=== PATIENT | female | born 1980 | race Asian ===

== ENCOUNTER 2021-03-12 14:47 | Emergency (ER) | payer OTHER ==
[2021-03-12 16:13] VITALS: BP 138/79; PULSE 76
== END 2021-03-12 19:12 | disposition left against medical advice (07) ==
LOC: MW.ED 14:47
DX: R25.2 Cramp and spasm (principal); Z53.21 Procedure and treatment not carried out due to patient leaving prior to being seen by health care provider

== ENCOUNTER 2021-07-24 15:09 | Emergency (ER) | payer OTHER ==
[2021-07-24 17:25] VITALS: BP 124/87; PULSE 87
== END 2021-07-24 17:25 | disposition home or self-care (01) ==
LOC: MW.ED 15:09
DX: S63.501A Unspecified sprain of right wrist, initial encounter (principal); E11.9 Type 2 diabetes mellitus without complications; E78.00 Pure hypercholesterolemia, unspecified; I10 Essential (primary) hypertension; Z79.4 Long term (current) use of insulin; Z79.899 Other long term (current) drug therapy; W19.XXXA Unspecified fall, initial encounter
CPT/HCPCS: 29130; 73030-26-RT; 73030-RT; 73110-26-RT; 73110-RT; 99283

== ENCOUNTER 2023-03-24 19:20 | Emergency (ER) | payer SELFPAY ==
[2023-03-24] MEDS ORDERED: Sodium Chloride 0.9% 10 ML Syringe FLUSH PRN (20:19)
[2023-03-24] MEDS ORDERED: Sodium Chloride 0.9% 2.5 ML Syringe FLUSH PRN (20:19)
[2023-03-24 20:43] LABS: APPEARANCE,URINE CLEAR; BILIRUBIN,URINE NEGATIVE (NEGATIVE); COLOR,URINE YELLOW; GLUCOSE,URINE NEGATIVE (NEGATIVE); KETONES,URINE NEGATIVE (NEGATIVE); LEUKOCYTE ESTERASE,URINE SMALL (NEGATIVE); NITRITE,URINE NEGATIVE (NEGATIVE); OCCULT BLOOD,URINE NEGATIVE (NEGATIVE); PH,URINE 6.5 (5.0-8.0); PROTEIN,URINE NEGATIVE (NEGATIVE)
[2023-03-24 20:52] LABS: BACTERIA,URINE FEW (NEGATIVE); RBC,URINE 0-2 (0-2/HPF); SQUAMOUS EPITHELIAL CELLS,UR FEW
[2023-03-24 20:53] LABS: MUCUS,URINE LIGHT (NONE-MOD)
[2023-03-24 21:31] LABS: CANDIDA DNA PROBE NEGATIVE (NEGATIVE); GARDNERELLA DNA PROBE POSITIVE (NEGATIVE); TRICHOMONAS DNA PROBE POSITIVE (NEGATIVE)
[2023-03-24] MEDS ORDERED: metroNIDAZOLE 250 MG Tab PO ONE (21:45)
[2023-03-24 22:11] LABS: C. TRACHOMATIS BY PCR NOT DETECTED; N. GONORRHOEAE BY PCR NOT DETECTED
[2023-03-24 22:29] VITALS: BP 132/94; PULSE 72
== END 2023-03-24 22:26 | disposition home or self-care (01) ==
LOC: MW.ED 19:20
DX: N89.8 Other specified noninflammatory disorders of vagina (principal); E78.00 Pure hypercholesterolemia, unspecified; I10 Essential (primary) hypertension; E11.9 Type 2 diabetes mellitus without complications; Z79.4 Long term (current) use of insulin; Z79.84 Long term (current) use of oral hypoglycemic drugs; Z79.899 Other long term (current) drug therapy
CPT/HCPCS: 81001; 81025; 87480; 87491; 87510; 87591; 87660; 99284; A9270; 99283

== ENCOUNTER 2023-04-10 12:47 | Emergency (ER) | payer OTHER ==
[2023-04-10 12:58] VITALS: PULSE 77
[2023-04-10] MEDS ORDERED: Sodium Chloride 0.9% 2.5 ML Syringe FLUSH PRN (13:08)
[2023-04-10] MEDS ORDERED: Sodium Chloride 0.9% 10 ML Syringe FLUSH PRN (13:08)
[2023-04-10] MEDS ORDERED: Ketorolac 30 MG/ML SDV IVPUSH ONE (13:09)
[2023-04-10] MEDS ORDERED: Sodium Chloride 0.9% 1,000 ML IV ONE (13:10)
[2023-04-10 14:08] LABS: BASOPHILS ABSOLUTE AUTO 0.05 K/uL (0.00-0.20); BASOPHILS PERCENT AUTO 0.8 % (0.0-1.0); EOSINOPHILS ABSOLUTE AUTO 0.07 K/uL (0.00-0.45); EOSINOPHILS PERCENT AUTO 1.1 % (0.0-6.0); HEMATOCRIT 42.2 % (37.0-47.0); HEMOGLOBIN 14.6 g/dL (12.0-16.0); IMMATURE GRAN ABSOLUTE AUTO 0.01 K/uL (0.00-0.05); IMMATURE GRAN PERCENT AUTO 0.2 % (0.0-0.4); LYMPHOCYTES ABSOLUTE AUTO 2.63 K/uL (1.00-4.80); LYMPHOCYTES PERCENT AUTO 40.5 % (24.0-44.0); MEAN CORPUSCULAR HEMOGLOBIN 28.8 pg (28.0-32.0); MEAN CORPUSCULAR HGB CONC 34.6 g/dL (32.0-36.0); MEAN CORPUSCULAR VOLUME 83.2 fL (83.0-99.0); MEAN PLATELET VOLUME 11.1 fL (9.4-12.3); MONOCYTES ABSOLUTE AUTO 0.48 K/uL (0.00-0.80); MONOCYTES PERCENT AUTO 7.4 % (0.0-8.0); NEUTROPHILS ABSOLUTE AUTO 3.25 K/uL (1.80-7.70); PLATELET COUNT,PLT 257 K/uL (150-400); RED BLOOD CELL COUNT 5.07 M/uL (4.10-5.30); WHITE BLOOD CELL COUNT,WBC 6.49 K/uL (3.9-11.3)
[2023-04-10 14:11] LABS: BILIRUBIN,URINE NEGATIVE (NEGATIVE); COLOR,URINE YELLOW; GLUCOSE,URINE NEGATIVE (NEGATIVE); KETONES,URINE NEGATIVE (NEGATIVE); LEUKOCYTE ESTERASE,URINE TRACE (NEGATIVE); NITRITE,URINE NEGATIVE (NEGATIVE); OCCULT BLOOD,URINE NEGATIVE (NEGATIVE); PROTEIN,URINE NEGATIVE (NEGATIVE); UROBILINOGEN,URINE 0.2 EU/dL (<2.0)
[2023-04-10 14:21] LABS: APPEARANCE,URINE HAZY; BACTERIA,URINE RARE (NEGATIVE); EPITHELIAL CELLS,URINE MODERATE (NONE-FEW); RBC,URINE 0-1 (0-2/HPF); WBC,URINE 0-2 (0-5/HPF)
[2023-04-10 14:23] VITALS: BP 132/81
[2023-04-10 14:32] LABS: ALBUMIN 4.3 g/dL (3.4-5.0); BILIRUBIN TOTAL 0.5 mg/dL (0.2-1.0); CALCIUM 9.7 mg/dL (8.5-10.1); CARBON DIOXIDE,CO2 28.8 mmol/L (21.0-32.0); CREATININE 0.9 mg/dL (0.6-1.0); EST CRCL DRUG DOSING (CG) 66.67 mL/min; PROTEIN TOTAL,TP 8.8 g/dL (6.4-8.2)
== END 2023-04-10 15:55 | disposition home or self-care (01) ==
LOC: MW.ED 12:47
DX: R10.31 Right lower quadrant pain (principal); E78.00 Pure hypercholesterolemia, unspecified; I10 Essential (primary) hypertension; E11.9 Type 2 diabetes mellitus without complications; Z79.4 Long term (current) use of insulin; Z79.899 Other long term (current) drug therapy
CPT/HCPCS: 36415; 74176; 80053; 81001; 81025; 83690; 85025; 96374; 99284; J1885; J3490; J7030

== ENCOUNTER 2023-09-11 09:33 | Emergency (ER) | payer BC, OTHER ==
[2023-09-11 10:10] VITALS: BP 128/88; PULSE 70
[2023-09-11] MEDS: traMADol 50 MG Tab PO STA (12:29)
== END 2023-09-11 12:31 | disposition home or self-care (01) ==
LOC: MW.ED 09:33
DX: M79.662 Pain in left lower leg (principal); I10 Essential (primary) hypertension; E78.00 Pure hypercholesterolemia, unspecified; E11.9 Type 2 diabetes mellitus without complications; Z79.4 Long term (current) use of insulin; Z79.899 Other long term (current) drug therapy; Z75.8 Other problems related to medical facilities and other health care
CPT/HCPCS: 93971; 99283; A9270

== ENCOUNTER 2023-10-09 12:42 | Emergency (ER) | payer BC ==
[2023-10-09 13:16] VITALS: BP 122/89; PULSE 79
[2023-10-09 14:52] LABS: CANDIDA DNA PROBE NEGATIVE (NEGATIVE); GARDNERELLA DNA PROBE POSITIVE (NEGATIVE); TRICHOMONAS DNA PROBE NEGATIVE (NEGATIVE)
[2023-10-09 15:09] LABS: C. TRACHOMATIS BY PCR NOT DETECTED; N. GONORRHOEAE BY PCR NOT DETECTED
== END 2023-10-09 14:14 | disposition home or self-care (01) ==
LOC: MW.ED 12:42
DX: N89.8 Other specified noninflammatory disorders of vagina (principal); E78.00 Pure hypercholesterolemia, unspecified; I10 Essential (primary) hypertension; E11.9 Type 2 diabetes mellitus without complications; Z11.3 Encounter for screening for infections with a predominantly sexual mode of transmission; Z75.8 Other problems related to medical facilities and other health care; Z79.4 Long term (current) use of insulin; Z79.899 Other long term (current) drug therapy
CPT/HCPCS: 87480; 87491; 87510; 87591; 87660; 99283